=== PATIENT | male | born 1950 | race Caucasian/White ===

== ENCOUNTER 2019-10-31 14:50 | Outpatient (CLI) | payer MEDICARE, OTHER, SELFPAY ==
--- NOTE | ~2019-10-31 | CT_ITS ---
EXAMINATION: CT brain wo con DATE: 10/31/2019 15:27 INDICATION: Status post fall. Acute posttraumatic headache. TECHNIQUE: Computed tomography (CT) of the head was performed without intravenous contrast. The dose- length product was 605.33 mGy-cm. The mA was adjusted according to patient size. Iterative reconstruc tion technique was employed. COMPARISON: None FINDINGS: No acute infarction, mass or mass effect. There is hyperdense appearance to the tentorium, likely related to dehydration state. Small subdural hemorrhage is less favored. 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 No depressed skull fractures. There is intracranial atherosclerosis. No acute infarction or mass. IMPRESSION: 1. Hyperdense tentorium, right greater than left, most likely related to dehydration state rather stefan n subtle subdural hemorrhage. Recommend follow-up short-term CT in 6-12 hours to assess stability. 2: Chronic age-related findings. Reviewed, dictated and finalized at location A. IMPRESSION: 1. Hyperdense tentorium, right greater than left, most likely related to dehydr ation state rather than subtle subdural hemorrhage. Recommend follow-up short-t erm CT in 6-12 hours to assess stability. 2: Chronic age-related findings.
== END 2019-10-31 14:51 | disposition home or self-care (01) ==
LOC: ANHIMG 15:02
PROVIDERS: PCP Internal Medicine; Visit Provider Student in an Organized Health Care Education/Training Program
DX: G44.319 Acute post-traumatic headache, not intractable (principal)
CPT/HCPCS: 70450